=== PATIENT | male | born 1995 | race Asian ===

== ENCOUNTER 2019-08-19 16:16 | Emergency (ER) | payer OTHER ==
[~2019-08-19] VITALS: Ht 172.7 cm; Wt 95.5 kg
[~2019-08-19 16:16] MED LIST: ULTRAM 50MG TAB50 MG PO; ZOFRAN8 MG PO
[2019-08-19 16:28] VITALS: BP 121/80; TEMP 98.5
[2019-08-19 17:27] VITALS: PULSE 80
== END 2019-08-19 17:27 | disposition home or self-care (01) ==
LOC: COL.ER 16:16
DX: S06.0X0A Concussion without loss of consciousness, initial encounter (principal); R40.2412 Glasgow coma scale score 13-15, at arrival to emergency department; V49.9XXA Car occupant (driver) (passenger) injured in unspecified traffic accident, initial encounter; Y92.410 Unspecified street and highway as the place of occurrence of the external cause

== ENCOUNTER 2019-12-27 20:38 | Emergency (ER) | payer SELFPAY ==
[~2019-12-27] VITALS: Ht 172.7 cm; Wt 95.5 kg
[2019-12-27 23:14] VITALS: BP 120/68; PULSE 64; TEMP 98.1
== END 2019-12-27 23:19 | disposition home or self-care (01) ==
LOC: COL.ER 20:38
DX: R51 Headache (principal); R45.7 State of emotional shock and stress, unspecified; Z83.3 Family history of diabetes mellitus
CPT/HCPCS: J1885; J2550